=== PATIENT | female | born 1965 | race Caucasian/White ===

== ENCOUNTER → 2019-07-31 | Outpatient (REF) | payer OTHER ==
[~2019-07-31] MED LIST: AMAR1TAB5; AUGMENTIN XR; CEPH250T; KEFL750C; MICA5TAB; PERC5TAB8; SYNT50TA
== END ==
LOC: M LAB LCGH 11:20
PROVIDERS: ATTEND Physician Assistant
DX: Z12.4 Encounter for screening for malignant neoplasm of cervix (principal)
CPT/HCPCS: 87624; G0123

== ENCOUNTER 2024-08-22 06:09 | Day surgery (SDC) | payer OTHER ==
[~2024-08-22] VITALS: Ht 157.5 cm; Wt 121.0 kg
[~2024-08-22 06:09] MED LIST changes: +ALPR0.25 PO; +AREDS; +B-122500 PO; +ECOT81TA5 PO; +LANTINJ4 SC; +LEVO50TA5 PO; +LOSA50TA5 PO; +MACR100C43 PO; +PEPC1TAB5 PO; +ROSU10TA61 PO; +TIRZ2.5P INJ; +ZYRTTAB8 PO
[2024-08-22] MEDS: LIDOCAINE 3.5 % 1ML OPHTH TOPICAL GEL OU ONE (06:52)
[2024-08-22] MEDS ORDERED: MIDAZOLAM INJ 2MG/2ML VIAL As Ordered ONE (07:15)
[2024-08-22] MEDS ORDERED: fentaNYL 100 MCG/2 ML INJECTION As Ordered ONE (07:16)
[2024-08-22] MEDS: POVIDONE-IODINE 5% OPHTH PREP SOL 30ML As Ordered ONE (08:05)
[2024-08-22] MEDS: BSS IRRIG/VANCO(10MG)/TOBRA(5MG)/EPINEPH(1:1000-0.5CC)500ML BAG-ORONLY As Ordered ONE (08:27)
[2024-08-22] MEDS: mitoMYcin 0.2 MG/VIAL KIT FOR OPHTHALMIC USE As Ordered ONE (08:27)
[2024-08-22] MEDS: LIDOCAINE 1% SDV 5ML VIAL As Ordered ONE (08:28)
[2024-08-22] MEDS: DUOVISC (0.50ML VISCOAT/0.85ML PROVISC) OPHTH KIT As Ordered ONE (08:49)
[2024-08-22] MEDS: TOBRADEX OPHTH OINT 3.5 GM As Ordered ONE (09:37)
[2024-08-22 09:45] VITALS: BP 138/69; TEMP 97.4; O2SAT 98
== END 2024-08-22 10:08 | disposition home or self-care (01) ==
LOC: M SDC 06:09
PROVIDERS: ATTEND Ophthalmology
DX: H40.1122 Primary open-angle glaucoma, left eye, moderate stage (principal); E11.9 Type 2 diabetes mellitus without complications; I10 Essential (primary) hypertension; E03.9 Hypothyroidism, unspecified; E78.00 Pure hypercholesterolemia, unspecified; G47.30 Sleep apnea, unspecified; K21.9 Gastro-esophageal reflux disease without esophagitis; Z79.82 Long term (current) use of aspirin; Z79.899 Other long term (current) drug therapy; Z79.4 Long term (current) use of insulin; Z79.890 Hormone replacement therapy; Z79.85 Long-term (current) use of injectable non-insulin antidiabetic drugs; Z88.5 Allergy status to narcotic agent; Z88.8 Allergy status to other drugs, medicaments and biological substances; Z88.1 Allergy status to other antibiotic agents; Z90.710 Acquired absence of both cervix and uterus
CPT/HCPCS: 66183; C1783; J2250; J3010; J7315

== ENCOUNTER 2024-12-26 09:48 | Day surgery (SDC) | payer OTHER ==
[~2024-12-26] VITALS: Ht 157.5 cm; Wt 117.3 kg
[2024-12-26] MEDS: LIDOCAINE 2% W/EPINEPHrine 20 ML VIAL **PRES FREE As Ordered ONE (06:48)
[~2024-12-26 09:48] MED LIST changes: +CLAR10CA3 PO; +CO Q10CA PO; +INSU100I59 SQ; +LOTE5DRO9; +OMEP40CA5 PO; +PRES1CAP PO; +TIRZ7.5P; +TRAZ1TAB10 PO; +VITA100093 PO; +XALA0.007
[2024-12-26] MEDS: LIDOCAINE 3.5% 1 ML OPHTH TOPICAL GEL OU ONE (10:39)
[2024-12-26] MEDS ORDERED: propofoL 200 MG/20 ML VIAL As Ordered ONE (11:22)
[2024-12-26] MEDS ORDERED: MIDAZOLAM INJ 2 MG/2 ML VIAL As Ordered ONE (11:22)
[2024-12-26] MEDS ORDERED: fentaNYL 100 MCG/2 ML INJECTION As Ordered ONE (11:22)
[2024-12-26] MEDS ORDERED: LIDOCAINE 2% 100 MG/5 ML SDV (FOR ANES.) As Ordered ONE (11:22)
[2024-12-26] MEDS: CIPROFLOXACIN 0.3% OPHTH OINTMENT As Ordered ONE (12:01)
[2024-12-26] MEDS ORDERED: ONDANSETRON 4MG 2ML VIAL As Ordered ONE (12:33)
[2024-12-26 12:55] VITALS: BP 133/58; TEMP 96.8; O2SAT 98
== END 2024-12-26 13:08 | disposition home or self-care (01) ==
LOC: M SDC 09:48
PROVIDERS: ATTEND Ophthalmology
DX: H02.403 Unspecified ptosis of bilateral eyelids (principal); I10 Essential (primary) hypertension; E11.9 Type 2 diabetes mellitus without complications; E03.9 Hypothyroidism, unspecified; Z86.73 Personal history of transient ischemic attack (TIA), and cerebral infarction without residual deficits; F41.9 Anxiety disorder, unspecified; K21.9 Gastro-esophageal reflux disease without esophagitis; G47.30 Sleep apnea, unspecified; Z79.899 Other long term (current) drug therapy; Z88.1 Allergy status to other antibiotic agents; Z88.5 Allergy status to narcotic agent; Z88.8 Allergy status to other drugs, medicaments and biological substances
CPT/HCPCS: 67904; 88300; J2250; J2405; J3010